=== PATIENT | male | born 1980 | race Caucasian/White ===

== ENCOUNTER 2016-06-22 04:23 | Emergency (ER) | payer OTHER ==
[2016-06-22 07:45] LABS: HEMOGLOBIN 14.7 gm/dl (14.0-17.5); RED BLOOD COUNT 5.1 M/UL (4.20-5.50); WHITE BLOOD COUNT 12.1 K/UL (4.5-11.0)
[2016-06-22 08:15] LABS: BUN/CREATININE RATIO 13 (0-10)
== END 2016-06-22 13:45 | disposition home or self-care (01) ==
LOC: ER1 04:23
PROVIDERS: Physician Assistant
DX: S01.112A Laceration without foreign body of left eyelid and periocular area, initial encounter (principal); S01.81XA Laceration without foreign body of other part of head, initial encounter; S00.432A Contusion of left ear, initial encounter; K02.9 Dental caries, unspecified; F17.210 Nicotine dependence, cigarettes, uncomplicated; Y04.2XXA Assault by strike against or bumped into by another person, initial encounter; Y92.89 Other specified places as the place of occurrence of the external cause; Z23 Encounter for immunization
CPT/HCPCS: 36415; 70450; 70486; 71020; 72125; 80053; 85025; 90715; 96361; 96374; 96375; 96376; 99285; J2270; J2405